=== PATIENT | female | born 1995 | race African-American/Black ===

== ENCOUNTER 2016-06-10 18:29 | Emergency (ER) | payer OTHER ==
[~2016-06-10] VITALS: Ht 167.6 cm; Wt 71.8 kg
[2016-06-10] MEDS ORDERED: ACETAMINOPHEN 325 MG TABLET PO ONE (22:15)
[2016-06-10] MEDS ORDERED: IBUPROFEN 600 MG TABLET PO ONE (22:15)
[2016-06-10] MEDS ORDERED: ACETAMINOPHEN 500 MG TABLET PO ONE (22:30)
[2016-06-10 23:51] VITALS: BP 112/60
== END 2016-06-10 23:51 | disposition home or self-care (01) ==
LOC: EMS 18:32
DX: M79.641 Pain in right hand (principal); M25.552 Pain in left hip; V49.88XA Car occupant (driver) (passenger) injured in other specified transport accidents, initial encounter; W22.11XA Striking against or struck by driver side automobile airbag, initial encounter; Y93.89 Activity, other specified; Y92.89 Other specified places as the place of occurrence of the external cause; Y99.8 Other external cause status
CPT/HCPCS: 73503; 81025; 99284